=== PATIENT | male | born 2000 | race Caucasian/White ===

== ENCOUNTER 2021-01-12 12:15 | Emergency (ER) | payer OTHER ==
[2021-01-12] MEDS: diphenhydrAMINE 50 MG Cap PO ONE (12:31)
[2021-01-12] MEDS: methylPREDNISolone Sodium Succinate 125 MG/2 ML SDV IM ONE (12:32)
--- NOTE | 2021-01-12 12:36 | EDM.PDOC ---
ED HPI GENERAL MEDICAL PROBLEM - General Chief Complaint: Allergic Reaction Stated Complaint: BEE STING Time Seen by Provider: 01/12/21 12:15 Source of Information: Reports: Patient History Limitations: Reports: No Limitations - History of Present Illness INITIAL COMMENTS - FREE TEXT/NARRATIVE: patient was brought to the ER after he got stung by bees - it occurred around 2 hrs ago. No SOB, but reports swelling of face/lips. no h/o personal allergies or asthma. He reports taking something for allergy prior to arrival. Upon arrival, he is talking well, vitals WNL. Sating 97% on RA. HR 85 Onset: Sudden Duration: Hour(s): (2) - Related Data Allergies Allergy/AdvReac Type Severity Reaction Status Date / Time No Known Allergies Allergy Verified 01/12/21 12:52 Home Meds: Home Meds Sertraline [Zoloft] 50 mg PO DAILY 01/12/21 [History] ED ROS ALLERGIC REACTION - Review of Systems Review Of Systems: See Below Constitutional: Reports: No Symptoms HEENT: Reports: No Symptoms Respiratory: Reports: No Symptoms Cardiovascular: Reports: No Symptoms GI/Abdominal: Reports: No Symptoms Musculoskeletal: Reports: No Symptoms Neurological: Reports: No Symptoms Psychiatric: Reports: No Symptoms ED EXAM GENERAL NO PERIP PULSE - Physical Exam Exam: See Below Exam Limited By: No Limitations General Appearance: Alert, WD/WN, No Apparent Distress Eye Exam: Bilateral Eye: EOMI, PERRL Throat/Mouth: No Airway Compromise, Other (swelling of lips and eyelids) Head: Atraumatic, Facial Swelling Respiratory/Chest: No Respiratory Distress, Lungs Clear, Normal Breath Sounds Cardiovascular: Normal Peripheral Pulses, Regular Rate, Rhythm Neurological: Alert, Oriented Psychiatric: Normal Affect Course - Vital Signs Last Recorded V/S: Last Vital Signs Temp 36.6 C 01/12/21 12:15 Pulse 75 01/12/21 12:15 Resp 16 01/12/21 12:15 BP 137/74 01/12/21 12:15 Pulse Ox 97 01/12/21 12:15 - Orders/Labs/Meds Orders: Active Orders 24 hr Category Date Time Status Sodium Chloride 0.9% [Normal Saline] 1,000 ml Med 01/12/21 12:45 Active IV ASDIRECTED Medication Orders Sodium Chloride (Normal Saline) 1,000 mls @ 999 mls/hr IV ASDIRECTED [place] Meds: Medications Generic Name Dose Route Start Last Admin Trade Name Ute PRN Reason Stop Dose Admin Sodium Chloride 1,000 mls @ 999 mls/hr 01/12/21 12:45 Normal Saline IV ASDIRECTED [place]INO Discontinued Medications Generic Name Dose Route Start Last Admin Trade Name Ute PRN Reason Stop Dose Admin Diphenhydramine HCl Confirm 01/12/21 12:41 01/12/21 12:57 Diphenhydramine 50 Mg Cap Administered 01/12/21 12:42 Not Given Dose 50 mg .ROUTE .STK-MED ONE Diphenhydramine HCl 50 mg 01/12/21 12:31 01/12/21 12:31 Diphenhydramine 50 Mg Cap PO 01/12/21 12:32 50 mg ONETIME ONE Administration Epinephrine HCl 0.3 mg 01/12/21 12:38 01/12/21 12:40 Epinephrine 0.3 Mg/0.3 Ml Pen Autoinjector IM 01/12/21 12:39 0.3 mg ONETIME ONE Administration Methylprednisolone Sodium Succinate Confirm 01/12/21 12:38 01/12/21 12:57 Methylprednisolone Sodium Succinate 125 Mg/2 Ml Sdv Administered 01/12/21 12:39 Not Given Dose 125 mg .ROUTE .STK-MED ONE Methylprednisolone Sodium Succinate 125 mg 01/12/21 12:31 01/12/21 12:32 Methylprednisolone Sodium Succinate 125 Mg/2 Ml Sdv IM 01/12/21 12:32 125 mg ONETIME ONE Administration - Re-Assessments/Exams Free Text/Narrative Re-Assessment/Exam: upon arrival, IM solumedrol was given 125mg PO Benadryl 50mg IV line was established - IVF was given 01/12/21 13:59 Epi pen was given as well was monitored in the ER for sometime - significant improvement in symptoms Departure - Departure Time of Disposition: 14:00 Disposition: Home, Self-Care 01 Condition: Good Clinical Impression: Bee sting reaction Qualifiers: Encounter type: initial encounter Injury intent: accidental or unintentional Qualified Code(s): T63.441A - Toxic effect of venom of bees, accidental (unintentional), initial encounter - Discharge Information *PRESCRIPTION DRUG MONITORING PROGRAM REVIEWED*: Not Applicable *COPY OF PRESCRIPTION DRUG MONITORING REPORT IN PATIENT STACI: Not Applicable Instructions: Bee, Wasp, or Hornet Sting, Adult, Allergies, Adult Referrals: PCP,None [Primary Care Provider] - Forms: ED Department Discharge Sepsis Event Note (ED) - Focused Exam Vital Signs: Vital Signs Temp Pulse Resp BP Pulse Ox 01/12/21 12:15 36.6 C 75 16 137/74 97 - Problem List & Annotations (1) Bee sting reaction SNOMED Code(s): 688088657, 320333926, [id number] Code(s): T63.441A - TOXIC EFFECT OF VENOM OF BEES, ACCIDENTAL, INIT Status: Acute Priority: Medium Current Visit: Yes Qualifiers: Encounter type: initial encounter Injury intent: accidental or unintentional Qualified Code(s): T63.441A - Toxic effect of venom of bees, accidental (unintentional), initial encounter - Problem List Review Problem List Initiated/Reviewed/Updated: Yes - My Orders Last 24 Hours: My Active Orders 01/12/21 12:45 Sodium Chloride 0.9% [Normal Saline] 1,000 ml IV ASDIRECTED - Assessment/Plan Last 24 Hours: My Active Orders 01/12/21 12:45 Sodium Chloride 0.9% [Normal Saline] 1,000 ml IV ASDIRECTED Plan: - take Benadryl as needed for allergy - will prescribe you a prednisone by mouth - start today - return to the ER if any concerns or recurrence of symptoms or shortness of breath
[2021-01-12] MEDS: EPINEPHrine 0.3 MG/0.3 ML Pen Autoinjector IM ONE (12:40)
[2021-01-12] MEDS ORDERED: Sodium Chloride 0.9% 1,000 ML IV SCH (12:45)
[2021-01-12] MEDS: diphenhydrAMINE 50 MG Cap ONE (12:57)
[2021-01-12] MEDS: methylPREDNISolone Sodium Succinate 125 MG/2 ML SDV ONE (12:57)
[2021-01-12 14:16] VITALS: BP 121/58; PULSE 69
== END 2021-01-12 14:38 | disposition home or self-care (01) ==
LOC: LB.ED 12:15
DX: T63.411A Toxic effect of venom of centipedes and venomous millipedes, accidental (unintentional), initial encounter (principal)
CPT/HCPCS: 96372; 99282; A9270; J2930